=== PATIENT | male | born 1960 | race Caucasian/White ===

== ENCOUNTER 2016-04-05 12:58 | Inpatient (IN) | payer OTHER ==
[~2016-04-05] VITALS: Ht 180.3 cm; Wt 79.8 kg
--- NOTE | 2016-04-05 13:09 | NUR ---
55 Y/O MALE SENT FROM DR BARRETO'S OFFICE FOR EVAL OF ABNORMAL EKG. PT REPORTS 6 MONTH HISTORY OF L SHOULDER PAIN, INTERMITTENT SINCE ONSET. STATES HE WAS GETTING CHIROPRACTOR TREATMENTS WITH SOME RELIEF. 2 WEEKS AGO, HAD "SHARP" PAIN THAT "WOULDNT BREAK". SINCE THENM HAS HAD "DULL" INTERMITTENT UPPER BACK PAIN. HAS COPIES OF EKGS WITH HIM FROM TODAY. DENIES C/P. DENIES SOB EKG IN PROGRESS IN ROOM 9. PRERNA Del Valle AT BEDSIDE
--- NOTE | 2016-04-05 13:23 | ED CARDIAC/CP/PALPITATIONS ---
History of Present Illness General Chief Complaint: General Adult Stated Complaint: ABNORMAL EKG, NECK AND BACK PAIN -CP Source: patient, old records, PCP Exam Limitations: no limitations Allergies Coded Allergies: NO KNOWN ALLERGIES (NKA) (06/29/10) Reconcile Medications Pravastatin Sodium 20 MG TABLET 1 TAB PO DAILY Hyperlipidemia (Reported) Triage Note: 55 Y/O MALE SENT FROM DR FUENTES'S OFFICE FOR EVAL OF ABNORMAL EKG. PT REPORTS 6 MONTH HISTORY OF L SHOULDER PAIN, INTERMITTENT SINCE ONSET. STATES HE WAS GETTING CHIROPRACTOR TREATMENTS WITH SOME RELIEF. 2 WEEKS AGO, HAD "SHARP" PAIN THAT "WOULDNT BREAK". SINCE THENM HAS HAD "DULL" INTERMITTENT UPPER BACK PAIN. HAS COPIES OF EKGS WITH HIM FROM TODAY. DENIES C/P. DENIES SOB EKG IN PROGRESS IN ROOM 9. PRERNA Del Valle AT BEDSIDE Triage Nurses Notes Reviewed? yes HPI: 55-year-old male sent in from his primary care doctor's office for possible acute coronary syndrome and abnormal EKG. Over the past 6 months patient has been having left-sided shoulder blade region pain which is aching sensation and also mild intermittent anterior left-sided chest pain. It is worse with motion and activity and exertion. Approximately 2 weeks ago he had a severe episode this pain in the evening time lasting all might long, left-sided anterior chest pain radiating to left arm, he felt nauseous and diaphoretic and short of breath at the time, lasted several hours. He woke up the next day and his left arm was still bothering him. He was receiving animal care taker who recommended that he get an x-ray. He was evaluated by his primary care doctor today, Tara Fuentes MD, who did an EKG and noted that he had Q waves in V1 and V2 and V3 which are new from his previous EKG of May 2015. I have the copies of the EKGs with me. Patient states that he is a smoker and has not been taking his blood pressure medication for the last 1 year. He states that his left-sided shoulder blade and chest pain has improved significantly since his event 2 weeks ago. (MARIYA HO) Vital Signs & Intake/Output Vital Signs & Intake/Output Vital Signs Date Time Temp Pulse Resp B/P Pulse O2 O2 Flow FiO2 Ox Delivery Rate 04/05 1949 98.2 87 16 136/89 97 Room Air 04/05 1934 88 117/73 04/05 1830 88 119/81 04/05 1714 82 16 117/80 97 Room Air 04/05 1646 86 112/76 04/05 1620 92 156/110 04/05 1541 99.4 92 16 156/110 97 Room Air 04/05 1441 97.1 93 16 133/94 97 Room Air 04/05 1351 96.5 106 18 146/90 04/05 1351 146/90 04/05 1350 106 18 140/87 96 Room Air 04/05 1329 74 18 160/110 04/05 1308 96.5 118 18 190/130 100 Room Air Past History Travel History Traveled to [place] past 21 day No Medical History Any Pertinent Medical History? 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 No (NO CAD HX) (MARIYA HO) Review of Systems Review of Systems Constitutional: Reports: see HPI. EENTM: Reports: no symptoms. Respiratory: Reports: no symptoms. Cardiovascular: Reports: see HPI. GI: Reports: no symptoms. Genitourinary: Reports: no symptoms. Musculoskeletal: Reports: no symptoms. Skin: Reports: no symptoms. Neurological/Psychological: Reports: no symptoms. Hematologic/Endocrine: Reports: no symptoms. Immunologic/Allergic: Reports: no symptoms. All Other Systems: Reviewed and Negative (MARIYA HO) Physical Exam Physical Exam Cardiovascular: tachycardia Comments: Well-developed well-nourished person in no acute distress HEENT: Normal EENT exam, extraocular motion intact, no nystagmus. Pupils equally round and reactive to light. Nose is atraumatic. External auditory canal and Tympanic membranes clear. Pharynx normal. No swelling or edema. Neck: Supple, no lymphadenopathy, normal range of motion without pain or tenderness Back: Nontender, no CVA tenderness. Full range of motion Cardiovascular: Tachycardic, no murmurs, normal JVP Respiratory: Chest nontender. No respiratory distress. Breath sounds clear to auscultation bilaterally Abdomen: Soft, nontender nondistended, no appreciable organomegaly. Normal bowel sounds. No ascites Extremity: No edema, no calf tenderness to palpation, normal and equal pulses. Neuro: Alert oriented x3, motor sensory normal, cranial nerves II through XII grossly intact. Skin: No appreciable rash on exposed skin, skin is warm and dry. Psych: Mood and affect is normal, memory and judgment is normal. Core Measures ACS in differential dx? Yes Severe Sepsis Present: No Septic Shock Present: No (BRODY GRAFF,MARIYA) Progress Differential Diagnosis: AMI, aortic dissection, atrial fibrillation, cholecystitis, CHF/pulm edema, costochondritis, hyperkalemia, hypovolemia, hyperthyroid, hyperventilation, intracranial hemorrhage, musculoskeletal pain, myocarditis, pancreatitis, pericarditis, pneumonia, pneumothorax, PSVT, pulmonary embolism, PUD/GERD, PVCs/PACs, respiratory failure, rib fracture, sepsis, unstable angina, V-fib/V-Tach, WPW syndrome Diagnostic Imaging: Viewed by Me: Radiology Read, CT Scan. Discussed w/RAD: Radiology Read, CT Scan. Radiology Impression: PATIENT: BARBARA VIEIRA PRESENT AGE: 55 PATIENT ACCOUNT NO: [id number] : 56 LOCATION: [facility] ORDERING PHYSICIAN: MARIYA GRAFF SERVICE DATE: 04/05/16 EXAM TYPE: CAT - CTA CHEST-AORTIC DISSECTION EXAMINATION: CT ANGIOGRAM OF THE CHEST WITH AND WITHOUT CONTRAST (AORTIC DISSECTION) CLINICAL INFORMATION: Chest pain. Evaluate for aortic dissection. COMPARISON: No pertinent prior studies are available for comparison. TECHNIQUE: Prior to contrast administration, noncontrast localization images were obtained. Subsequently, multidetector volumetric imaging was performed from the thoracic inlet to below the diaphragms following the administration of 100 mL Optiray 350 intravenous contrast. No contrast reaction reported. Sagittal, coronal, and MIP oblique sagittal reformatted images were obtained on the CT workstation, uploaded to PACS, and reviewed. Total exam dose-length product 943 mGy-cm FINDINGS: VASCULAR: On precontrast imaging of the chest, there are no crescentic foci of mural hyperdensity to suggest acute aortic intramural hematoma. There is scattered atherosclerosis of the aortic arch. Scattered coronary artery calcifications are identified. Postcontrast imaging demonstrates adequate contrast opacification of the thoracic aorta. No centrally displaced intraluminal flaps to suggest aortic dissection. Normal caliber of the thoracic aorta without aneurysmal dilatation. Adequate contrast opacification of the pulmonary arterial vasculature, without evidence of pulmonary embolism to the level of the subsegmental pulmonary arteries. NONVASCULAR: LUNG: The lungs are well-expanded and clear without focal airspace consolidation. No suspicious pulmonary nodules or masses are identified. The central airways are patent, without endobronchial obstructing lesions. PLEURA: No pleural effusions or pneumothoraces. MEDIASTINUM: Normal heart size. No pericardial effusion. No hilar or mediastinal lymphadenopathy. No evidence of septal bowing or right heart strain. CHEST WALL/AXILLA: No axillary or internal mammary lymphadenopathy. OSSEOUS STRUCTURES: No acute or suspicious osseous abnormality. UPPER ABDOMEN: No acute findings within the upper abdomen. Incidental note is made of a small gastric diverticulum arising from the gastric fundus (series 7, image 53). No reflux of contrast into the hepatic veins to suggest elevated right heart pressures. IMPRESSION: No centrally displaced intraluminal flaps to suggest aortic dissection. Normal caliber of the thoracic aorta, without aneurysmal dilatation. No crescentic foci of mural hyperdensity on precontrast imaging to suggest acute aortic intramural hematoma. No evidence of pulmonary embolism. DICTATED BY: SHANNA WOODS MD DATE/TIME DICTATED:04/05/161617 SMOKING TOBACCO CUTTER OPERATOR:ADAN DATE/TIME TRANSCRIBED:04/05/161617 CXR Impression: PATIENT: BARBARA VIEIRA PRESENT AGE: 55 PATIENT ACCOUNT NO: [id number] : 56 LOCATION: [facility] ORDERING PHYSICIAN: MARIYA GRAFF SERVICE DATE: 04/05/16 EXAM TYPE: RAD - XRY-PORTABLE CHEST XRAY EXAMINATION: XR PORTABLE CHEST CLINICAL INFORMATION: Chest pain. COMPARISON: None. TECHNIQUE: Portable view of the chest was obtained. FINDINGS: Rotated positioning. Cardiac and mediastinal silhouette is within normal limits, allowing for positioning. Lungs are symmetric expanded and clear. No focal consolidation, effusion, edema or pneumothorax. IMPRESSION: No acute process. DICTATED BY: DO BASHIR,LEONARDA DATE/TIME DICTATED:04/05/161331 SMOKING TOBACCO CUTTER OPERATOR Initial ED EKG: NSR, rate (100 BPM), q WAVES ANTERIOR v1 AND v2 v3 WITH ABNORMAL st SEGMENT AND t-WAVE INVERSION ANTERIOR AND LATERAL. nO CHANGE FROM ekg AT PRIMARY CARE DOCTOR'S OFFICE EARLIER TODAY Prior EKG: unchanged Repeat EKG: unchanged (1709) Rhythm Strip: normal sinus rhythm (100 BPM), sinus tachycardia Comments: Old EKG from 05/12/15 shows normal sinus rhythm no ST or T-wave changes. EKG from primary care doctor's office today shows Q waves in V1 and V2 V3 with ST segment changes T-wave inversion anterior and laterally throughout. He is given 325 mg aspirin by mouth, 25MG TOPROL PO. 04/05/2016 3:16:58 PM, troponin slightly elevated, discussed with Dr. Valdez who reviewed the EKG. He'll evaluate the patient in the emergency department at this time. Recommends CTA of chest and if negative heparin bolus and drip, icu tonight, possible cardiac cath lab technologist tx tomorrow, serial ekg and troponin. Discussed w the patient, risks and benefits of heparin discussed. PT REFUSED RECTAL EXAM FOR HEMOCULT PRIOR TO HEPARIN. (BRODY GRAFF,MARIYA) Plan of Care: Orders Procedure Date/time Status Nothing by Mouth 04/06 B Active LIPID PANEL 04/06 0500 Active ICU LAB BUNDLE 04/06 0500 Active CBC WITHOUT DIFFERENTIAL 04/06 0500 Active PARTIAL THROMBOPLASTIN TIME 04/05 2300 Active EKG 04/05 2300 Active Pathway - chart 04/05 1947 Active Pathway - chart 04/05 1808 Active Add-on Test (ER Only) 04/05 1748 Active URINE DRUGS OF ABUSE 04/05 1719 Complete Weight 04/05 1713 Active Patient Data 04/05 1708 Active OXYGEN SETUP (GEN) 04/05 1707 Active Saline Lock 04/05 1707 Active Admit to inpatient 04/05 1707 Active Vital Signs 04/05 1707 Active Activity/Ambulation 04/05 1707 Active Code Status 04/05 1707 Active TROPONIN LEVEL 04/05 1651 Complete EKG 04/05 1651 Active Intake & Output 04/05 1416 Active PARTIAL THROMBOPLASTIN TIME 04/05 1345 Complete PROTHROMBIN TIME 04/05 1345 Complete GLYCOSYLATED HGB 04/05 1345 Active Saline Lock 04/05 1319 Active Telemetry/Dry Roaster 04/05 1319 Active TROPONIN LEVEL 04/05 1319 Complete MAGNESIUM 04/05 1319 Complete COMPREHENSIVE METABOLIC PANEL 04/05 1319 Complete CBC WITHOUT DIFFERENTIAL 04/05 1319 Complete B-TYPE NATRIURETIC PEP (BNP) 04/05 1319 Complete EKG 04/05 1300 Active Pathway - chart 04/05 UNK Active House Staff 04/05 UNK Active ACS Core Measures 04/05 UNK Active Lab Add-on Test 04/05 UNK Active VTE Mechanical Prophylaxis 04/05 UNK Active Hemoccult 04/05 UNK Active ECHOCARDIOGRAM 04/05 UNK Active Current Medications Sig/Jesus Start time Last Medication Dose Stop Time Status Admin Clopidogrel Bisulfate 75 MG DAILY 04/06 1000 CAN (Plavix) Metoprolol Tartrate 25 MG BID 04/06 1000 AC (Lopressor) Multivitamins 1 TAB DAILY 04/06 1000 CAN (Theragran Vitamins) Nebivolol 10 MG DAILY 04/06 1000 CAN (Bystolic) Acetaminophen 650 MG Q6P PRN 04/05 1999 AC (Tylenol) Acetaminophen 1,000 MG Q6P PRN 04/05 1999 AC (Ofirmev) Morphine Sulfate 1 MG Q6-PRN PRN 04/05 1999 AC (Morphine) Atorvastatin Calcium 80 MG 1700 04/05 1845 AC (Lipitor) Heparin Sodium 5,000 UNIT ONCE ONE 04/05 1530 CAN (Porcine) 04/05 1531 Labetalol HCl 10 MG ONCE ONE 04/05 1330 CAN (Trandate) 04/05 1331 Laboratory Tests 04/05/162024: Urine Opiates Screen < 100.00, Methadone Screen < 40, Barbiturate Screen < 60, Ur Phencyclidine Scrn < 6.00, Amphetamines Screen < 100, U Benzodiazepines Scrn < 85, Urine Cocaine Screen < 50, Urine Cannabis Screen < 5.00 04/05/16 1710: Troponin I 0.10 04/05/16 1345: Hemoglobin A1c Pending 04/05/16 1345: Anion Gap 12, Estimated GFR > 60, BUN/Creatinine Ratio 19.0, Glucose 98, Calcium 10.2, Magnesium 1.9, Total Bilirubin 0.5, AST 13 L, ALT 31, Alkaline Phosphatase 110, Troponin I 0.11 *H, Bey-I-Drasubdrqhr Pept 4810 H, Total Protein 7.4, Albumin 4.1, Globulin 3.3, Albumin/Globulin Ratio 1.2, PT 10.7, INR 1.02, APTT 35, CBC w Diff MAN DIFF ORDERED, RBC 4.87, MCV 88.8, MCH 30.1, RDW 13.5, MPV 8.0, Gran % 61.9, Lymphocytes % 27.0, Monocytes % 8.4, Eosinophils % 1.2, Basophils % 1.5, Absolute Granulocytes 8.8 H, Absolute Lymphocytes 3.8 H, Absolute Monocytes 1.2 H, Absolute Eosinophils 0.2, Absolute Basophils 0.2, Platelet Estimate VERIFIED BY SMEAR, Normocytic RBCs VERIFIED, Normochromic RBCs VERIFIED, PUBS MCHC 33.9 Departure Departure Disposition: STILL A PATIENT Condition: Stable Clinical Impression Primary Impression: Acute Q wave myocardial infarction Secondary Impressions: ACS (acute coronary syndrome), Hypertensive urgency Referrals: DEBBY BASHIR,TARA Eric (PCP/Family) Departure Forms: Customer Survey General Discharge Information Admission Note Spoke With: CHRISTIAN VALDEZ MD Documentation of Exam: Documentation of any treatments & extenuating circumstances including Concerns Regarding Discharge (functional status, medication knowledge or non-compliance, living conditions, etc.) that warrant an admission rather than observation: Patient with a Q wave KS, requires heparin and ICU monitoring, he is high risk for further cardiac events, likely transfer to cardiac cath lab technologist tomorrow. (MARIYA HO) PA/MILL CRANE OPERATOR Co-Sign Statement Statement: ED Attending supervision documentation- x I saw and evaluated the patient. I have also reviewed all the pertinent lab results and diagnostic results. I agree with the findings and the plan of care as documented in the PA's/MILL CRANE OPERATOR's documentation. 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 Now with Qwaves in anterior leads and + troponin. [] I have reviewed the ED Record and agree with the PA's/MILL CRANE OPERATOR's documentation. [] Additions or exceptions (if any) to the PAs/MILL CRANE OPERATOR's note and plan are summarized below: [] (SEBASTIEN BASHIR,ELIECER) Critical Care Note Critical Care Note Critical Care Time: 30-74 min (MARIYA HO)
--- NOTE | 2016-04-05 13:44 | NUR ---
PT BLOOD SENT TO THE LAB [facility],PEREIRA,[email or web address]
[2016-04-05 13:58] LABS: ABSOLUTE BASOPHIL COUNT 0.2 /CUMM (0.0-0.2); ABSOLUTE EOSINOPHIL COUNT 0.2 /CUMM (0.0-0.7); ABSOLUTE GRANULOCYTE CT 8.8 /CUMM (1.4-6.5); ABSOLUTE LYMPH COUNT 3.8 /CUMM (1.2-3.4); ABSOLUTE MONOCYTE COUNT 1.2 /CUMM (0.10-0.60); BASOPHIL % 1.5 % (0.0-2.0); EOSINOPHIL % 1.2 % (0-5); GRANULOCYTE % 61.9 % (42.2-75.2); HEMATOCRIT 43.2 % (42-52); MEAN CORPUSCULAR HGB 30.1 PG (27.0-31.0); MEAN CORPUSCULAR HGB CONC 33.9 G/DL (33.0-37.0); MEAN CORPUSCULAR VOLUME 88.8 FL (80.0-94.0); PLATELET COUNT 476 /CUMM (130-400); RBC DISTRIBUTION WIDTH 13.5 % (11.5-14.5); RED BLOOD CELL CT 4.87 /CUMM (4.70-6.10); WHITE BLOOD CELL COUNT 14.3 /CUMM (4.8-10.8)
--- NOTE | 2016-04-05 14:00 | NUR ---
PA INFORMED OF IMRPOVED BP, MEDICATED PER EMAR, REMAINS ON MONITOR, IV EST AND SALINE LOCK AT THIS TIME.
--- NOTE | 2016-04-05 14:32 | RADIOLOGY REPORT ---
EXAMINATION: XR PORTABLE CHEST CLINICAL INFORMATION: Chest pain. COMPARISON: None. TECHNIQUE: Portable view of the chest was obtained. FINDINGS: Rotated positioning. Cardiac and mediastinal silhouette is within normal limits, allowing for positioning. Lungs are symmetric expanded and clear. No focal consolidation, effusion, edema or pneumothorax. IMPRESSION: No acute process.
--- NOTE | 2016-04-05 14:37 | NUR ---
CRITICAL TEST RESULTS [id number] BARBARA VIEIRA M TESTS AND RESULTS: TROP 0.11 Results received and read back by: NAZARIO BOYD Results received date and time: 04/05/16 1438 The following provider was notified of the results, and read the results back: PRERNA SKINNER Notified date and time: 04/05/16 at 1438
--- NOTE | 2016-04-05 15:30 | NUR ---
ASSUMING CARE OF PT AT THIS TIME
--- NOTE | 2016-04-05 15:41 | NUR ---
DR. VALDEZ AT BEDSIDE DISCUSSING RESULTS AND POC
--- NOTE | 2016-04-05 15:51 | NUR ---
PER PRERNA SKINNER, NO HEPARIN AT THIS TIME UNTIL CTA RESULTS
--- NOTE | 2016-04-05 16:08 | NUR ---
PT AT CT
--- NOTE | 2016-04-05 16:51 | CT SCAN REPORT ---
EXAMINATION: CT ANGIOGRAM OF THE CHEST WITH AND WITHOUT CONTRAST (AORTIC DISSECTION) CLINICAL INFORMATION: Chest pain. Evaluate for aortic dissection. COMPARISON: No pertinent prior studies are available for comparison. TECHNIQUE: Prior to contrast administration, noncontrast localization images were obtained. Subsequently, multidetector volumetric imaging was performed from the thoracic inlet to below the diaphragms following the administration of 100 mL Optiray 350 intravenous contrast. No contrast reaction reported. Sagittal, coronal, and MIP oblique sagittal reformatted images were obtained on the CT workstation, uploaded to PACS, and reviewed. Total exam dose-length product 943 mGy-cm FINDINGS: VASCULAR: On precontrast imaging of the chest, there are no crescentic foci of mural hyperdensity to suggest acute aortic intramural hematoma. There is scattered atherosclerosis of the aortic arch. Scattered coronary artery calcifications are identified. Postcontrast imaging demonstrates adequate contrast opacification of the thoracic aorta. No centrally displaced intraluminal flaps to suggest aortic dissection. Normal caliber of the thoracic aorta without aneurysmal dilatation. Adequate contrast opacification of the pulmonary arterial vasculature, without evidence of pulmonary embolism to the level of the subsegmental pulmonary arteries. NONVASCULAR: LUNG: The lungs are well-expanded and clear without focal airspace consolidation. No suspicious pulmonary nodules or masses are identified. The central airways are patent, without endobronchial obstructing lesions. PLEURA: No pleural effusions or pneumothoraces. MEDIASTINUM: Normal heart size. No pericardial effusion. No hilar or mediastinal lymphadenopathy. No evidence of septal bowing or right heart strain. CHEST WALL/AXILLA: No axillary or internal mammary lymphadenopathy. OSSEOUS STRUCTURES: No acute or suspicious osseous abnormality. UPPER ABDOMEN: No acute findings within the upper abdomen. Incidental note is made of a small gastric diverticulum arising from the gastric fundus (series 7, image 53). No reflux of contrast into the hepatic veins to suggest elevated right heart pressures. IMPRESSION: No centrally displaced intraluminal flaps to suggest aortic dissection. Normal caliber of the thoracic aorta, without aneurysmal dilatation. No crescentic foci of mural hyperdensity on precontrast imaging to suggest acute aortic intramural hematoma. No evidence of pulmonary embolism.
--- NOTE | 2016-04-05 17:14 | NUR ---
FOOD TRAY ORDERED
--- NOTE | 2016-04-05 17:26 | History & Physical ---
LEILANI BASHIR,EVONNE 04/05/16 3555: General Information and HPI MD Statement: I have seen and personally examined BARBARA VIEIRA and documented this H&P. The patient is a 55 year old M who presented with a patient stated chief complaint of [ABNORMAL EKG]. Source of Information: patient, family Exam Limitations: no limitations History of Present Illness: This is a 55 yo male with PMH of hyptension, hyperlipidemia, who was sent in for abnormal EKG by PCP. Patient states that since September he has had a left shoulder pain that has been bothering him. He states the pain is improved by Motrin, hot shower, and seeing the chiropractor. About 2-3 weeks ago he states that he had a shoulder spasm, worse than his usual pain and not relieved by the usual means. This spasm radiated anteriorly to his left chest and lasted the entire night. During this episode he denied any palpitation, diaphoresis, or shortness of breath. Subsequently, he was recommended by chiropractor to get a chest x-ray which prompted him to see Dr. Fuentes for an appointment today. During his visit patient had an EKG done which showed acute anomalies, which were not present in EKG done in May 2015 and he was recommended to come to ED. Of note, patient has been off all medications including his anti-hypertensives and anti-hyperlipidemic agents for the past year. Prior to stopping, he had taken the medications for about one year and he stated he did feel better. After stopping, he denies any headache or blurry vision. He does not normally check blood pressures at home; however, about one month ago he got a tooth pulled and his dentist noted that his pressures were a "little high." In ED patient continues to complain of shoulder blade pain, but denies any chest pain, fever, chills, nausea, vomiting, abdominal pain, headache, blurry vision, decreased urinary frequency. Patient does endorse 40 year history of smoking. Denies drinking or recreational drug use. 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 Of note, there is family history of cardiac disease. His mother had high blood pressure, and his uncle had initial bypass and his father had AAA that was surgically repaired. 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 Ambulation: independent IADLs Independent: shopping, housework, finances, food prep, telephone, transportation , medication admin. Employment History Employment landscape gardener Review of Systems Review of Systems Constitutional: Denies: chills, diaphoresis, fever, malaise, weakness. EENTM: Denies: blurred vision, double vision, visual changes. Cardiovascular: Denies: chest pain, edema, orthopena, palpitations, peripheral edema, syncope. Respiratory: Denies: cough, hemoptysis, orthopnea, short of breath, sputum production. GI: Denies: abdominal pain, bloating, constipation, diarrhea, nausea, bloody stool. Genitourinary: Denies: discharge, hematuria, hesitation. Musculoskeletal: Reports: back pain, muscle pain. Denies: joint pain. Skin: Reports: no symptoms. Exam & Diagnostic Data Last 24 Hrs of Vital Signs/I&O Vital Signs Date Time Temp Pulse Resp B/P Pulse O2 O2 Flow FiO2 Ox Delivery Rate 04/05 1646 86 112/76 04/05 1620 92 156/110 04/05 1541 99.4 92 16 156/110 97 Room Air 04/05 1441 97.1 93 16 133/94 97 Room Air 04/05 1351 96.5 106 18 146/90 04/05 1351 146/90 04/05 1350 106 18 140/87 96 Room Air 04/05 1329 74 18 160/110 04/05 1308 96.5 118 18 190/130 100 Room Air Intake & Output 04/05 1600 04/05 0800 04/05 0000 Intake Total 10 Output Total Balance 10 Intake, IV 10 Patient 80.739 kg Weight Physical Exam General Appearance Alert, Oriented X3, Cooperative, No Acute Distress Skin No Rashes, No Breakdown, No Significant Lesion HEENT Atraumatic, PERRLA, EOMI Neck Supple, No JVD Cardiovascular Regular Rate, Normal S1, Normal S2, No Murmurs Lungs Clear to Auscultation, Normal Air Movement Abdomen Normal Bowel Sounds, Soft, No Tenderness, has a large umbilical hernia Neurological Normal Gait, Normal Speech, Strength at 5/5 X4 Ext, Normal Tone, Sensation Intact Last 24 Hrs of Labs/Óscar: Laboratory Tests 04/05/16 1710: Troponin I Pending 04/05/16 1345: Anion Gap 12, Estimated GFR > 60, BUN/Creatinine Ratio 19.0, Glucose 98, Calcium 10.2, Magnesium 1.9, Total Bilirubin 0.5, AST 13 L, ALT 31, Alkaline Phosphatase 110, Troponin I 0.11 *H, Ilw-N-Hgfcwkfrlis Pept 4810 H, Total Protein 7.4, Albumin 4.1, Globulin 3.3, Albumin/Globulin Ratio 1.2, CBC w Diff MAN DIFF ORDERED, RBC 4.87, MCV 88.8, MCH 30.1, RDW 13.5, MPV 8.0, Gran % 61.9, Lymphocytes % 27.0, Monocytes % 8.4, Eosinophils % 1.2, Basophils % 1.5, Absolute Granulocytes 8.8 H, Absolute Lymphocytes 3.8 H, Absolute Monocytes 1.2 H, Absolute Eosinophils 0.2, Absolute Basophils 0.2, Platelet Estimate VERIFIED BY SMEAR, Normocytic RBCs VERIFIED, Normochromic RBCs VERIFIED, PUBS MCHC 33.9 Assessment/Plan Assessment: This is a 55-year-old male with 40 pack per year smoking history and past medical history of hypertension and hyperlipidemia, off any medications, who sent in by PCP for abnormalities noted in EKG. In ED MAXIMUM TEMPERATURE 99.4, pulse 118, respiration 18, BP Max 190/130, satting 97% on room air. Lab workup showed: White count 14.3, hemoglobin 14.7, hematocrit 43.2. BUN 19, creatinine 1.0. INR 1.02. Troponin 0.11 subsequently trended down to 0.1. BNP 4810. CT and chest x-ray showed no acute processes. No focal consolidation, effusion, edema, or pneumothorax. EKG showed Q waves in V1 through V4. No ST segment elevation. QTc 456. PLAN ACS: Patient presented with troponin 0.11 subsequently present trended down to 0.10. Had Q waves on EKG. Unsure of acuity of process. Patient does not describe typical anginal chest pain. He denies exertional pain and describes pain more in his left shoulder blade. However, he does have significant smoking history, pertinent family history, new EKG changes, and 1+ troponin. No Plavix if he has chest pain then Brillinta. * Aspirin * Statin * A1c * Lipid panel * Telemetry monitoring * Heparin drip with bolus * Nitroglycerin for chest pain * Keep sats above 92 * Cardiology consult Hypertensive urgency: Patient given with blood pressure 190/130. He denied any headache or blurry vision. He stopped taking his hypertensive medications for the past year. Previously he stated he was taking by systolic, unknown dose 1 tablet each day. We will keep blood pressures within normal limits. Patient was given Lopressor 50 mg by mouth +5 mg of IV Lopressor in ED. Subsequently his blood pressure trended down to 112/76. We will start him back on his home by [facility]. * Start by Bystolic * Monitor blood pressure * ?? Lisinopril Smoking: Patient has 40 pack per year smoking history. We educated him on risks , encourage him to quit. If he requires we will offer nicotine patch. Nothing by mouth at midnight Heparin prophylaxis Full code As Ranked By This Provider Problem List: 1. Acute Q wave myocardial infarction 2. ACS (acute coronary syndrome) 3. Hypertensive urgency Core Measures/Miscellaneous Acute Coronary Syndrome ACS Diagnosis: Yes ASA W/I 24hr of admit Yes Beta-Raissa W/I 24hrs Yes LDL assessed W/I 24 hrs Yes Currently on Statin No Cerebrovascular Accident CVA/TIA Diagnosis: No Congestive Heart Failure CHF Diagnosis: No Venous Thromboembolism VTE Risk Factors: Acute medical illness, Age > 40 VTE Prophylaxis Ordered Inpt: Pharm- Heparin No Mech VTE prophylaxis d/t: No contraindications No VTE Pharm Prophylaxis d/t: No contraindications VTE Diagnosis: No VTE Type: NONE VTE Confirmed by (Test): NONE Severe Sepsis Severe Sepsis Present: No Septic Shock Septic Shock Present: No Miscellaneous Documentation Attending Case Discussed With: CHRISTIAN VALDEZ MD Primary Care Physician: TARA GUARDADO MD Patient sees these Specialists None Level of Patient Care: Critical Care (CRI) Consults Needed: Consulting Specialty: Cardiology MARILIN MARSH 04/05/16 1801: General Information and HPI Allergies/Medications Home Med list Aspirin (Aspirin*) 81 MG TAB.CHEW 81 MG PO DAILY [facility] Atorvastatin Calcium 80 MG TABLET 80 MG PO 1700 HLD Heparin (Heparin-1/2NS 25,000 Units/500) 25,000 UNIT/500 ML (50 UNIT/ML) IV.SOLN 50 UNITS IV Q1 ANTICOAGULATION 50 UNITS/ML - DOSE ACCORDING TO PTT, GOAL 2X ABOVE THE UPPER LIMIT OF NORMAL. Metoprolol Tartrate 25 MG TABLET 25 MG PO BID HTN Past Family/Social History Family History Relations & Conditions if any MOTHER (HTN). FATHER (Abdominal Aortic Aneurysm). Relation not specified for: FH: CAD (coronary artery disease) Resident Review Statement Resident Statement: examined this patient, discussed with general internist, agreed with general internist, discussed with family, reviewed EMR data (avail) Other Findings: This is a 55 YO male with PMH of HTN Dx 2 years ago and off treatment for the past 1 year for social reasons, he has Hx of hyperlipidemia not on medication, extensive cigarette smoking with 40 pack years and still an active smoker brought in from his PCP after finding of new Q wave changes catherine picture of shoulder blade pain on the left for the past 6 months. The shoulder pain worsed 3 weeks ago not abbating or responding to usual advil, he denies any diaphoresis , palpitation, SOB or chest heaviness in conjugation with chest pain. He has no orthopnea, PND or Lower Limbs edema. He reports to continue to do his work without any limitations. The patient denies any nausea, vomiting, light headedness, dizziness, blurring of vision, cough, abdominal pain or urinary symptomts. Vitals signs on arrival: BP 190/130, RR 18, Sats 97% on RA, afebril PE: Alert, NAD, OrientedX3 HEENT: Wet pink mucous membranes, no JVD CVS: RRR, Normal S1/S2 no murmurs RS: Clear lungs bilaterally Abdomen: Normal contour, soft, umbilical hearnia that is reducible Extremities: No edema, cyanosis or clubbing Labs: Trops 0.11 repeared 0.10, WBC 23592 Imaging: CTA: No aortic dissection, no PE EKG: Sinus tachycardia 103 bpm, regular, normal axis, Q waves in V1,2 and 3 Assessment and plan: 55 years old presenting with Hx of chest pain, elevated trops and new EKG changes. He is hypertensive not of medication, has hyperlipidemia and active smoker with more than 40 pack years. Chest pain is at baseline on assessment. Acute coronary syndrome Hypertensive urgency Hyperlipidemia Nicotine dependency We will admit the patient in ICU, start heparin drip, vitals Q1 hr, check lipid panel, echocardiogram and HBA1C, has received asprin 325mg, check utox for drug of abuse, restart bystolic 10mg daily home medication and Lisinopril 10mg daily for hypertension and heart remodulling prevention, atovastatin 80mg daily, serial troponin and EKG after 8 hours or at any time if the patient has recurrency of chest pain. CHRISTIAN VALDEZ MD 04/05/162045: Attending MD Review Statement Attending Statement Attending MD Statement: examined this patient, discuss w/resident/PA/PACKING AND STAMPING MACHINE OPERATOR, agreed w/resident/PA/PACKING AND STAMPING MACHINE OPERATOR, discussed with family, reviewed EMR data (avail), discussed with nursing, reviewed images, amended to note Attending Assessment/Plan: The patient is a 55-year-old male with history of hypertension, and hyperlipidemia who was sent to the emergency department by Dr. Guardado because of an abnormal EKG. he has been having pain in the left shoulder intermittently over the past few months. 3 weeks ago he had prolonged severe pain in the left shoulder radiating to his chest which was a 9/10 and lasted throughout the night. He subsequently saw a chiropractor for the pain. He has not had any significant chest pain today. No shortness of breath. No diaphoresis. No syncope. Review of systems: No fever. No chills. No rash. No tremor. No melena. All other systems are reviewed and are noted to be negative. Gen: The patient is in no acute distress HEENT: Normal nose, ears, and oropharynx. Pupils equal bilaterally. Conjunctiva normal. Neck: Supple with no JVD, no masses, and no thyromegaly Lungs: Clear to auscultation with normal respiratory effort Heart: RRR, S1, S2, no murmurs. No peripheral edema, 2+ pulses in the lower extremities bilaterally Abdomen: Soft, nontender, no masses. No hepatomegaly. No splenomegaly Extremities: No clubbing or cyanosis. Normal muscle strength in the upper and lower extremities. Skin: Normal skin turgor with no skin ulcers or lesions noted. Neuro: Cranial nerves intact. Sensation intact Psych: Alert and oriented 3 with appropriate affect chest x-ray: Negative EKG tracing is independently reviewed, and reveals sinus tachycardia at 103 with left atrial abnormality and anterior infarct age indeterminate. Assessment: 1. Hypertension 2. Hyperlipidemia 3. anterior wall myocardial infarction, nonacute. Likely Three weeks ago at the time in which the patient had severe pain. Plan: * IV heparin per protocol * Aspirin * Statin * Metoprol 25 milligrams p.o. b.i.d. * Transfer to [facility] for cardiac catheterization. * NPO after midnight * Will hold off on giving Brilinta now since he is pain-free. This will be given in the hospital laboratory technician if a stent is placed.
[2016-04-05 18:07] LABS: PT 10.7 SEC (9.4-12.5); PTT 35 SEC (25-37)
--- NOTE | 2016-04-05 18:59 | NUR ---
PT'S SISTER SKYE WOULD LIKE TO BE NOTIFIED WHEN PT IS TRANSFERRED TO [facility] TOMORROW: [phone]
--- NOTE | 2016-04-05 19:05 | NUR ---
PT GOING TO ROOM 113.
--- NOTE | 2016-04-05 19:47 | NUR ---
REPORT GIVEN TO KUMAR MONCADA
[2016-04-05] MEDS ORDERED: PRAVACHOL20 M2 PO (21:25)
[2016-04-05] MEDS ORDERED: PRAVASTATIN SOD20 M2 PO (21:27)
--- NOTE | 2016-04-05 21:39 | NUR ---
PT ADMITTED TO ICU FROM ER VIA STRETCHER ACCOMPANIED BY ER NURSE.PT TRANSFER TO BED WITH NO ISSUES.ORIENTED PT TO SURROUNDINGS.AVSS.FOLLOW COMMANDS CARRERA WITH +CMS.+PP.NO EDEMA.HEPARIN GTT CONT VIA PIV SITE. LCTA AND ON RA WITH SATS >95%.PLAN OF CARE REVIEWED.MRSA AND VRE SWABS DONE.ADMISSION DATA BASE DONE.
[2016-04-05] MEDS ORDERED: METOPROLOL TART25 M1 PO (22:11)
[2016-04-05] MEDS ORDERED: ATORVASTATIN CA80 M1 PO (22:11)
--- NOTE | 2016-04-05 22:17 | Patient Discharge Instructions ---
Discharge Instructions General Discharge Information You were seen/treated for: Chest pain Special Instructions: Please call and make a follow up with your PCP within one week after discharge Diet Recommended Diet: Low Fat Acute Coronary Syndrome Inclusion Criteria At DC or during hospital stay patient has or had the following: ACS DIAGNOSIS Yes Discharge Core Measures Meds if any: Prescribed or Continued at Discharge KAVITA/ARB if EF <40% Yes Aspirin Yes Beta-Raissa Yes Statin Yes Meds if any: NOT Prescribed or Continued at Discharge Congestive Heart Failure Inclusion Criteria At DC or during hospital stay patient has or had the following: CHF DIAGNOSIS No Discharge Core Measures Meds if any: Prescribed or Continued at Discharge Meds if any: NOT Prescribed or Continued at Discharge Cerebrovascular accident Inclusion Criteria At DC or during hospital stay patient has or had the following: CVA/TIA Diagnosis No Discharge Core Measures Meds if any: Prescribed or Continued at Discharge Meds if any: NOT Prescribed or Continued at Discharge Venous thromboembolism Inclusion Criteria VTE Diagnosis No VTE Type NONE VTE Confirmed by (Test) NONE Discharge Core Measures - Per Current guidelines, there needs to be overlap - treatment for the first 5 days of Warfarin therapy. - If discharged on Warfarin prior to 5 days of - overlap therapy, the patient will need to be - assessed for post discharge needs including - *Post discharge parental anticoagulation - *Warfarin and/or parental anticoagulation education - *Follow up date to check INR post discharge At least 5 days overlap therapy as Inpatient No Meds if any: Prescribed or Continued at Discharge Note: Overlap Therapy is Warfarin and Anticoagulant Meds if any: NOT Prescribed or Continued at Discharge
--- NOTE | 2016-04-05 22:40 | Discharge Summary ---
Visit Information Visit Dates Admission Date: 04/05/16 Discharge Date: 04/06/16 Hospital Course Course Attending Physician: CHRISTIAN VALDEZ MD Primary Care Physician: DEBBY BASHIR,TARA Eric Consulting Request: Consulting Specialty: Cardiology Hospital Course: This is a 55 YO male with PMH of HTN Dx 2 years ago and off treatment for the past 1 year for social reasons, he has Hx of hyperlipidemia not on medication, extensive cigarette smoking with 40 pack years and still an active smoker came to from his PCP after found to have new Q wave changes the patient reported shoulder blade pain on the left for the past 6 months. The shoulder pain worsed 3 weeks ago not abbating or responding to usual advil, he went to PCP to get an X-ray to assess the pain during which visit an EKG was done, he denies any diaphoresis, palpitation, SOB or chest heaviness in conjugation with chest pain. He has no orthopnea, PND or Lower Limbs edema. On presentation the patient was very hypertensive BP 190/130, his lab work showed eleveted troponin of 0.11, EKG had Q waves on leads V1, 2 and 3. He was admitted to the ICU and we managed him for the following conditions. Acute Coronary Syndrome Patient has several risk factors for ACS HTN, HLD, cigarrete smoking. On this presentation he had no acute typical chest pain. Given the initial positive troponins and persistent EKG changes the patient was started on IV Heparin, Asprin, Atovasatin and metoprolol. We assessed his lipid panel, HBA1C and urine to toxicology. No drug of abuse in the urine to explain the chest pain. Patient remained asymptomatic. There was no evidence of aortic dissection on CTA. He was transferred to [facility] for cardiac catheterization. Hyperlipidemia Patient has history of hyperlipidemia. Lipid panel done on April 2015 showed LDL 153, HDL 35. He was started on Pravastatin 20mg by his PCP but reports not to take the medication as instructed. We started the patient on high dose stating 80MG daily, instructed to take low fat diet as well to facilitate better lipids control. Hypertension On arival the patient was very hypertensive BP 190/130. He received 50MG of metoprolol and 1 round of IV lopressor with subsequent good BP decrease. Patient re-educated on the importance of adhering to his medications. Will be discharged on Metoprolol 25MG twice a day. Nicotine dependency Patient still an active smoker 1 PPD. He has 40 pack years of smoking. Patient educated to stop cigarrete smoking. Complications: None Allergies: Coded Allergies: NO KNOWN ALLERGIES (NKA) (06/29/10) Significant Procedures: CTA: No centrally displaced intraluminal flaps to suggest aortic dissection. Normal caliber of the thoracic aorta, without aneurysmal dilatation. No crescentic foci of mural hyperdensity on precontrast imaging to suggest acute aortic intramural hematoma. No evidence of pulmonary embolism. Pertinent Lab Results: Troponin 0.11 Disposition Summary Disposition Principal Diagnosis: Acute coronary syndrome Hypertension Hyperlipidemia Additional Diagnosis: Nicotine dependency Discharge Disposition: other general hospital Discharge Instructions General Discharge Information Code Status: Full Code Patient's Diet: [employer] diet Patient's Activity: As tolerated Follow-Up Instructions/Appts: Please call and make a follow up with your PCP within one week after discharge Medications at Discharge Discharge Medications: Stop taking the following medications: Pravastatin Sodium (Pravachol) 20 MG TABLET ORAL DAILY Pravastatin Sodium (Pravastatin Sodium) 20 MG TABLET ORAL DAILY Start taking the following new medications: Atorvastatin Calcium (Atorvastatin Calcium) 80 MG TABLET 80 Milligram ORAL 5 PM Qty = 30 No Refills Metoprolol Tartrate (Metoprolol Tartrate) 25 MG TABLET 25 Milligram ORAL TWICE DAILY Qty = 60 No Refills Comments: Last Taken: Time:0900 Aspirin (Aspirin*) 81 MG TAB.CHEW 81 Milligram ORAL DAILY Qty = 30 No Refills Comments: Last Taken:04/06/16 Time:0900 Heparin (Heparin-1/2NS 25,000 Units/500) 25,000 UNIT/500 ML (50 UNIT/ML) IV.SOLN 50 Units INTRAVEN EVERY HOUR Days = 7 No Refills Instructions: 50 UNITS/ML - DOSE ACCORDING TO PTT, GOAL 2X ABOVE THE UPPER LIMIT OF NORMAL. Comments: LAST PTT THIS AM 57-BOLUS WITH 2400UNITS AND GTT INCREASED TO 18UNITS/KG/ HR 28.8ML/HR Copies To: DEBBY BASHIR,TARA Eric
[2016-04-05] MEDS ORDERED: ASPIRIN81 M4 PO (22:43)
[2016-04-06] VITALS: BP 108/60
[2016-04-06 00:30] LABS: PTT 44 SEC (25-37)
--- NOTE | 2016-04-06 01:41 | NUR ---
PT ALERT AND ORIENTED, DENIES PAIN. HEPARIN 60 UNITS/KG IV BOLUS GIVEN FOR PTT 44. HEPARIN GTT INCREASED TO 16UNITS/KG/H=25.6 ML/H. NEXT PTT 0700 04/06/16. NSR70'S-80'S, MANUAL BP108/60. NPO AFTER MN, FOR POSSIBLE CATH IN AM.
--- NOTE | 2016-04-06 05:16 | NUR ---
PT DENIES CHEST PAIN. ALSO PT HNV SINCE COMING UP FROM ER. HE SAID THAT HE VOIDED BEFORE COMING UP FROM ER. DR.HULUR VEGA.
[2016-04-06 08:00] VITALS: BP 103/75
--- NOTE | 2016-04-06 08:12 | PN- Housestaff ---
Subjective Follow-up For: ACS Hypertensive urgency Tele-Events Since Last Visit: no acute telemetric events. Pt continues in NSR. Subjective: Saw patient at bedside this a.m. Denies chest pain or shortness of breath. States he slept well. He is scheduled for cardiac catheterization at [place] this AM. He will be transferred out shortly. No acute overnight events. No complaints. Review of Systems Constitutional: Denies: chills, diaphoresis, fever, malaise, weakness. EENTM: Denies: blurred vision, double vision, visual changes, hearing changes. Cardiovascular: Denies: chest pain, palpitations, syncope. Respiratory: Denies: cough, orthopnea, short of breath. Gastrointestinal: Denies: abdominal pain, bloating, constipation, diarrhea, vomiting. Genitourinary: Reports: no symptoms. Musculoskeletal: Reports: back pain. Skin: Denies: no symptoms. Objective Last 24 Hrs of Vital Signs/I&O Vital Signs Date Time Temp Pulse Resp B/P Pulse O2 O2 Flow FiO2 Ox Delivery Rate 04/06 0914 84 109/64 04/06 0800 98.1 89 18 103/75 99 Room Air 04/06 0400 97 Room Air 04/06 0000 97 Room Air 04/06 0000 97.3 82 22 108/60 97 Room Air 04/05 1950 98.2 87 16 136/89 97 Room Air 04/05 1934 88 117/73 04/05 1830 88 119/81 04/05 1714 82 16 117/80 97 Room Air 04/05 1646 86 112/76 04/05 1620 92 156/110 04/05 1541 99.4 92 16 156/110 97 Room Air 04/05 1441 97.1 93 16 133/94 97 Room Air 04/05 1351 96.5 106 18 146/90 04/05 1351 146/90 04/05 1350 106 18 140/87 96 Room Air 04/05 1329 74 18 160/110 04/05 1308 96.5 118 18 190/130 100 Room Air Intake & Output 04/06 1600 04/06 0800 04/06 0000 Intake Total 142 76.8 Output Total Balance 142 76.8 Intake, IV 142 76.8 Patient 79.832 kg 79.832 kg Weight Physical Exam General Appearance: Alert, Oriented X3, Cooperative Skin: No Rashes, No Breakdown, No Significant Lesion HEENT: Atraumatic, PERRLA, EOMI, Mucous Membr. moist/pink Neck: Supple Cardiovascular: Regular Rate, Normal S1, Normal S2 Lungs: Clear to Auscultation, Normal Air Movement Abdomen: Soft, No Tenderness Neurological: Normal Speech, Normal Tone, Sensation Intact Extremities: No Clubbing, No Cyanosis, No Edema Vascular: Normal Pulses Current Medications: Current Medications Sig/Jesus Start time Last Medication Dose Route Stop Time Status Admin Acetaminophen 650 MG Q6P PRN 04/05 1999 AC PO Acetaminophen 1,000 MG Q6P PRN 04/05 2000 AC IV Aspirin 81 MG DAILY 04/06 1000 AC 04/06 PO 0914 Aspirin 0 .STK-MED ONE 04/05 1348 DC PO Aspirin 325 MG ONCE ONE 04/05 1330 DC 04/05 PO 04/05 1331 1351 Atorvastatin Calcium 80 MG 1700 04/05 1845 AC PO Clopidogrel Bisulfate 75 MG DAILY 04/06 1000 CAN PO Heparin Sodium 5,000 UNIT .STK-MED ONE 04/06 0041 DC (Porcine) IV 04/06 0042 Heparin Sodium 25,000 UNIT Q24H 04/05 1730 AC 04/06 (Porcine) IV 0115 Sodium Chloride 500 ML Heparin Sodium 4,000 UNIT ONCE ONE 04/05 1715 DC 04/05 (Porcine) IV 04/05 1716 1735 Heparin Sodium 0 .STK-MED ONE 04/05 1534 DC (Porcine) .ROUTE Heparin Sodium 5,000 UNIT ONCE ONE 04/05 1530 CAN (Porcine) IV 04/05 1531 Heparin Sodium/ 25,000 UNIT Q24H 04/05 1530 DC Dextrose IV Dextrose/Water 500 ML Labetalol HCl 10 MG ONCE ONE 04/05 1330 CAN IV 04/05 1331 Metoprolol Tartrate 25 MG BID 04/06 1000 AC 04/06 PO 0914 Metoprolol Tartrate 0 .STK-MED ONE 04/05 1607 DC IV Metoprolol Tartrate 0 .STK-MED ONE 04/05 1607 DC PO Metoprolol Tartrate 25 MG ONCE ONE 04/05 1600 DC 04/05 PO 04/05 1601 1620 Metoprolol Tartrate 5 MG ONCE ONE 04/05 1600 DC 04/05 IV 04/05 1601 1620 Metoprolol Tartrate 25 MG ONCE ONE 04/05 1400 DC 04/05 PO 04/05 1401 1351 Metoprolol Tartrate 0 .STK-MED ONE 04/05 1348 DC PO Morphine Sulfate 1 MG Q6-PRN PRN 04/05 1999 AC IV Multivitamins 1 TAB DAILY 04/06 1000 CAN PO Nebivolol 10 MG DAILY 04/06 1000 CAN PO Last 24 Hrs of Lab/Óscar Results Last 24 Hrs of Labs/Mics: Laboratory Tests 04/06/16 0735: Anion Gap 7, Estimated GFR > 60, Glucose 91, Calcium 9.5, Phosphorus 4.3, Magnesium 2.2, Total Bilirubin 0.7, AST 12 L, ALT 28, Albumin 3.7, Triglycerides 174 H, Cholesterol 221 H, LDL Cholesterol, Calc 153 H, HDL Cholesterol 34 L, Cholesterol/HDL Ratio 7 H, APTT 57 H, CBC w Diff MAN DIFF ORDERED, RBC 4.45 L, MCV 88.5, MCH 30.2, RDW 13.5, MPV 8.4, Gran % 51.5, Lymphocytes % 37.1, Monocytes % 8.2, Eosinophils % 2.2, Basophils % 1.0, Absolute Granulocytes 5.3, Absolute Lymphocytes 3.8 H, Absolute Monocytes 0.8 H, Absolute Eosinophils 0.2, Absolute Basophils 0.1, Platelet Estimate VERIFIED BY SMEAR, Normocytic RBCs VERIFIED, Normochromic RBCs VERIFIED, PUBS MCHC 34.1 04/05/16 2345: APTT 44 H 04/05/16 2300: Troponin I Cancelled 04/05/162024: Urine Opiates Screen < 100.00, Methadone Screen < 40, Barbiturate Screen < 60, Ur Phencyclidine Scrn < 6.00, Amphetamines Screen < 100, U Benzodiazepines Scrn < 85, Urine Cocaine Screen < 50, Urine Cannabis Screen < 5.00 04/05/16 1710: Troponin I 0.10 04/05/16 1345: Hemoglobin A1c Pending 04/05/16 1345: Anion Gap 12, Estimated GFR > 60, BUN/Creatinine Ratio 19.0, Glucose 98, Calcium 10.2, Magnesium 1.9, Total Bilirubin 0.5, AST 13 L, ALT 31, Alkaline Phosphatase 110, Troponin I 0.11 *H, Izp-[id number] Pept 4810 H, Total Protein 7.4, Albumin 4.1, Globulin 3.3, Albumin/Globulin Ratio 1.2, PT 10.7, INR 1.02, APTT 35, CBC w Diff MAN DIFF ORDERED, RBC 4.87, MCV 88.8, MCH 30.1, RDW 13.5, MPV 8.0, Gran % 61.9, Lymphocytes % 27.0, Monocytes % 8.4, Eosinophils % 1.2, Basophils % 1.5, Absolute Granulocytes 8.8 H, Absolute Lymphocytes 3.8 H, Absolute Monocytes 1.2 H, Absolute Eosinophils 0.2, Absolute Basophils 0.2, Platelet Estimate VERIFIED BY SMEAR, Normocytic RBCs VERIFIED, Normochromic RBCs VERIFIED, PUBS MCHC 33.9 Microbiology 04/05 2329 UPPER RESP: Surveillance Culture - RECD 04/05 2329 GI: Surveillance Culture - RECD Assessment/Plan Assessment: This is a 55-year-old male with 40 pack per year smoking history and past medical history of hypertension and hyperlipidemia, off any medications, who sent in by PCP for abnormalities noted in EKG. CT and chest x-ray showed no acute processes. No focal consolidation, effusion, edema, or pneumothorax. EKG showed Q waves in V1 through V4. No ST segment elevation. QTc 456. PLAN ACS: Patient presented with troponin 0.11 subsequently present trended down to 0.10. Had Q waves on EKG. Patient does not describe typical anginal chest pain. He denies exertional pain and describes pain more in his left shoulder blade. However, he does have significant smoking history, pertinent family history, new EKG changes, and 1+ troponin. No Plavix if he has chest pain then Brillinta. Scheduled for cardiac cath today at [place]. * Aspirin * Statin * A1c * Lipid panel * Telemetry monitoring * Heparin drip with bolus * Nitroglycerin for chest pain * Keep sats above 92 * Cardiology consult * Cardiac cath in [place] Hypertensive urgency: Patient came in with blood pressure 190/130. Improved to 140s this AM. Started on Metoprolol in hospital. We will keep blood pressures within normal limits. * Monitor blood pressure * Con't Metroprolol Smoking: Patient has 40 pack per year smoking history. We educated him on risks , encourage him to quit. If he requires we will offer nicotine patch. Nothing by mouth at midnight Heparin prophylaxis Full code Problem List: 1. ACS (acute coronary syndrome) 2. Hypertensive urgency Pain Ratin Pain Location: none Pain Goal: Remain pain free Pain Plan: none Tomorrow's Labs & Rationales: none DVT/Prophylaxis: pharmacological Consulting Request: Consulting Specialty: Cardiology
[2016-04-06 08:51] LABS: ABSOLUTE BASOPHIL COUNT 0.1 /CUMM (0.0-0.2); ABSOLUTE EOSINOPHIL COUNT 0.2 /CUMM (0.0-0.7); ABSOLUTE GRANULOCYTE CT 5.3 /CUMM (1.4-6.5); ABSOLUTE LYMPH COUNT 3.8 /CUMM (1.2-3.4); ABSOLUTE MONOCYTE COUNT 0.8 /CUMM (0.10-0.60); EOSINOPHIL % 2.2 % (0-5); GRANULOCYTE % 51.5 % (42.2-75.2); HEMATOCRIT 39.4 % (42-52); MEAN CORPUSCULAR HGB 30.2 PG (27.0-31.0); MEAN CORPUSCULAR HGB CONC 34.1 G/DL (33.0-37.0); MEAN CORPUSCULAR VOLUME 88.5 FL (80.0-94.0); MEAN PLATELET VOLUME 8.4 FL (7.4-10.4); PLATELET COUNT 395 /CUMM (130-400); RBC DISTRIBUTION WIDTH 13.5 % (11.5-14.5); RED BLOOD CELL CT 4.45 /CUMM (4.70-6.10); WHITE BLOOD CELL COUNT 10.3 /CUMM (4.8-10.8)
[2016-04-06 08:58] LABS: PTT 57 SEC (25-37)
[2016-04-06 09:14] VITALS: BP 109/64
[2016-04-06] MEDS ORDERED: HEPARIN-1/25000 UNI1 IV (09:24)
--- NOTE | 2016-04-06 11:04 | NUR ---
@0800-PT A/O. VSS. CALM AND COOP. VSS. HEP GTT CONT TO INFUSE. PTT PENDING. PT DENIES PAIN. PLAN FOR TRANSFER FOR CARDIAC CATH THIS AM. PT AWARE OF POC. @0900-AM MEDS INCLUDING METOPROLOL AND ASA ADMINISTERED. HEP GTT TITRATED UP BY 2 UNITS, NOW INFUSING AT 18 UNITS/KG/HR. [facility] AWARE. @1000-[facility] AT BEDSIDE FOR TRANSFER TO [facility]. CARDIAC CATH BOOK PROVIDED EARLIER IN AM FOR CARDIAC CATH EDUCATION.
== END 2016-04-06 10:10 | disposition short-term general hospital (02) | DRG 198 ==
LOC: ENRESERVDT → ENRESERVTM → ERH 12:58 → ERHI 17:07 → CRI 20:41
PROVIDERS: Physician Assistant Surgical; Preventive Medicine Public Health & General Preventive Medicine; ADMIT Internal Medicine Cardiovascular Disease
DX: I24.9 Acute ischemic heart disease, unspecified (principal); I10 Essential (primary) hypertension; F17.210 Nicotine dependence, cigarettes, uncomplicated; E78.5 Hyperlipidemia, unspecified
CPT/HCPCS: CCU; 36415; 80307; 82436; 87070; 93005; 93010; 96374; 96375; 99291; J1644; J3490

== ENCOUNTER → 2017-04-12 | Day surgery (SDC) | payer OTHER ==
[~2017-04-12] VITALS: Ht 177.8 cm; Wt 81.6 kg
[~2017-04-12] MED LIST: ASPIRIN81 M4 PO; ATORVASTATIN CA80 M1 PO; HEPARIN-1/25000 UNI1 IV; METOPROLOL TART25 M1 PO; PRAVACHOL20 M2 PO; PRAVASTATIN SOD20 M2 PO
--- NOTE | 2017-04-12 11:56 | Operative Report ---
Operative/Inv Procedure Report Surgery Date: 04/12/17 Name of Procedure: Incarcerated ventral hernia Pre-Operative Diagnosis: Same Post-Operative Diagnosis: Incarcerated ventral hernia repair with mesh, preperitoneal Estimated Blood Loss: scant Surgeon/Engineering Manager Electronics: Derek BASHIR,Henry Mckenzie/Em GRAFF Anesthesia: laryngeal mask airway Implants: Parietex mesh, 6.6 cm Operative/Procedure Note Note: After informed consent patient brought to the operating room and laid supine. Gen. anesthesia obtained and the abdomen was prepped and draped. The periumbilical tissues were infiltrated with a cocktail local anesthesia. A curvilinear incision was made sharply. We dissected down to the umbilical stalk and circumferentially dissected it bluntly. The stock was then transected with cautery, thus exposing the defect. The hernia sac was circumferentially dissected down to level of fascia and incised the neck with cautery. Contents were then able to be reduced. There was a large amount of incarcerated omentum. Preperitoneal planes were then created a circumferential fashion due to the need for preperitoneal mesh placement. We measured the defect. Transverse dimension was 3 cm. Chose a 6.[address] below the defect. The mesh was folded and placed in the preperitoneal cavity then unraveled below the defect. The fascia was then closed over the mesh with interrupted 0 Maxon sutures, incorporating a portion of the mesh laterally to keep it centered. Wound was irrigated with saline. The umbilical stalk re-created with 3-0 Vicryl. Incision was then closed in layers of Vicryl. Sterile dressings were applied. Sponge and needle counts are correct CC: Tabby BASHIR,Kiet; Keith BASHIR,Aaron Eric
== END ==
LOC: STS 01:52
DX: K43.6 Other and unspecified ventral hernia with obstruction, without gangrene (principal); I10 Essential (primary) hypertension; I25.2 Old myocardial infarction; F17.200 Nicotine dependence, unspecified, uncomplicated
CPT/HCPCS: C1781; J0131; J0690; J1100; J1885; J2250; J2405